=== PATIENT | female | born 1980 | race Caucasian/White ===

== ENCOUNTER 2016-09-13 08:03 | Emergency (ER) | payer OTHER ==
--- NOTE | 2016-09-13 14:45 | ED ORDER SUMMARY ---
..... Patient: ANDRAE WHITNEY OrderSheet [facility] VisitID: [id number] [address] [place] [address] 36y, F Registration Date/Time: 09/13/2016 ORDER SHEET Weight: 78.1 kg (stated) Allergies: Haldol GENERAL ORDERS: CBC w Diff Urgent (08:12 09/13/2016 Mery JACINTO) (Ack 8:14 Graham) (8:45 JDeElena R.N.) CMP Urgent (08:09/13/2016 Mery JACINTO) (Ack 8:14 Graham) (8:45 JDeElena R.N.) UA-Culture if indicated Urgent (08:09/13/2016 Mery JACINTO) (Ack 8:14 Graham) (8:45 JDeElena R.N.) Ethyl Alcohol Urgent (08:12 09/13/2016 Mery JACINTO) (Ack 8:14 Graham) (8:45 JDeElena R.N.) Urine Drug Screen Urgent (08:12 09/13/2016 Mery JACINTO) (Ack 8:14 [place]) (8:45 JDeElena R.N.) Acetaminophen Level Urgent (08:34 09/13/2016 JDeElena R.N. verbal order read back to Mery JACINTO) (Ack 8:35 [place]) (8:45 JDeElena R.N.) Salicylate Level Urgent (08:35 09/13/2016 JDeElena R.N. verbal order read back to Mery JACINTO) (Ack 8:36 [place]) (8:45 JDeElena R.N.) MEDICATION ORDERS: ZyPREXA Zydis ODT PO 5 mg (NOW) (10:24 09/13/2016 Denise Galeas) (10:43 JDeElena R.N.) Ativan PO 1 mg (HIGH ALERT MEDICATION, NOW) (10:43 09/13/2016 JDeElena R.N. verbal order read back to Denise Galeas) (10:44 JDeElena R.N.) IV FLUIDS: ORDER SHEET NOTES: [Electronically signed by Nas Macias R.N. (14:59 09/13/2016)] [Electronically signed by Rogelio Gonzalez Dr. (08:33 09/14/2016)] [Electronically locked/signed by Nas Macias R.N. (14:59 09/13/2016)]
--- NOTE | 2016-09-13 14:45 | ED ORDER SUMMARY ---
..... Patient: ANDRAE WHITNEY OrderSheet [facility] VisitID: [id number] [address] [place] [address] 36y, F Registration Date/Time: 09/13/2016 ORDER SHEET Weight: 78.1 kg (stated) Allergies: Haldol GENERAL ORDERS: CBC w Diff Urgent (08:12 09/13/2016 Mery JACINTO) (Ack 8:14 Graham) (8:45 JDeElena R.N.) CMP Urgent (08:09/13/2016 Mery JACINTO) (Ack 8:14 Graham) (8:45 JDeElena R.N.) UA-Culture if indicated Urgent (08:09/13/2016 Mery JACINTO) (Ack 8:14 Graham) (8:45 JDeElena R.N.) Ethyl Alcohol Urgent (08:12 09/13/2016 Mery JACINTO) (Ack 8:14 Graham) (8:45 JDeElena R.N.) Urine Drug Screen Urgent (08:12 09/13/2016 Mery JACINTO) (Ack 8:14 [place]) (8:45 JDeElena R.N.) Acetaminophen Level Urgent (08:34 09/13/2016 JDeElena R.N. verbal order read back to Mery JACINTO) (Ack 8:35 [place]) (8:45 JDeElena R.N.) Salicylate Level Urgent (08:35 09/13/2016 JDeElena R.N. verbal order read back to Mery JACINTO) (Ack 8:36 [place]) (8:45 JDeElena R.N.) MEDICATION ORDERS: ZyPREXA Zydis ODT PO 5 mg (NOW) (10:24 09/13/2016 Denise Galeas) (10:43 JDeElena R.N.) Ativan PO 1 mg (HIGH ALERT MEDICATION, NOW) (10:43 09/13/2016 JDeElena R.N. verbal order read back to Denise Galeas) (10:44 JDeElena R.N.) IV FLUIDS: ORDER SHEET NOTES: [Electronically signed by Nas Macias R.N. (14:59 09/13/2016)] [Electronically signed by Rogelio Gonzalez Dr. (08:33 09/14/2016)] [Electronically locked/signed by Nas Macias R.N. (14:59 09/13/2016)]
--- NOTE | 2016-09-13 14:45 | ED NURSING NOTES ---
Clinical Report - Nurses [facility] [address] [place] [address] 09/13/2016 8:06 Patient: ANDRAE WHITNEY TRIAGE Triage time 08:35. Acuity: LEVEL 2. Chief Complaint: ALTERED MENTAL STATUS and CONFUSED and (Per Police, pt was picked up off the street for throwing broken skateboard pieces at cars. Upon arrival to ED she is labile. She is alert and oriented x 4. She is cooperative but needs constant de-escalation. Per police, was recently released from [facility] and has been off her medications. Pt reports a good relationship with therapist (Mando).). Alert. SEPSIS SCREEN: Sepsis Screen: negative. Negative (no infection suspected/documented). --08:44 Nas Macias R.N. 08:35 09/13/16. BP: 149/75 (regular adult cuff) taken on the left arm, via an automated monitor, while sitting. HR: 103 (tachycardic). RR: 16 (regular, unlabored and normal). O2 saturation: 96% on room air. Temp: 98.7 F (tympanic). Pain level now: 0/10. --08:44 Nas Macias R.N. Weight: 78.1 kg stated. Height/Length: 64 inches Per Patient. BMI: 29.6. --08:37 Nas Macias R.N. Medications Unable to Obtain (Pt reports currently being on Haldol but not currently taking because "it makes [her] crazy." Wishes to take Wellbutrin instead. ). --08:37 Nas Macias R.N. Haldol Decanoate Intramuscular. --08:37 Nas Macias R.N. Medication/allergy information source: the patient. --08:44 Nas Macias R.N. Allergies Haldol. --08:38 Nas Macias R.N. History Historian: police and patient. Arrived in police custody. Primary physician (Dr. Norris at [facility], Mando at [facility]). Treatment ENTREPRENEURSHIP PROGRAM DIRECTOR: None. SOCIAL HX: Smoker- current status unknown (Unable to obtain a clear smoking hx from patient, Denies smoking tobacco but then states "I was just trying to bum a cigarette off him."). History of heavy drug use: marijuana. No alcohol use. She is homeless. She has not traveled outside the [place] The patient was not exposed to MRSA. No infectious disease exposure. SELF HARM ASSESSMENT: A self harm assessment was performed. The patient answered "no" to the question "Do you have thoughts of harming or killing yourself?", "Are you here because you tried to hurt yourself?", "Have you recently had thoughts about harming or killing others?" and "Do you have any dangerous items in your possession?". FALL RISK ASSESSMENT: Fall risk assessment completed. No fall risk identified. NUTRITIONAL RISK ASSESSMENT: The nutritional risk assessment revealed no deficiencies. FUNCTIONAL ASSESSMENT: Functional assessment: no impairments noted. LEARNING NEEDS ASSESSMENT: The learning needs assessment revealed no barriers. ABUSE ASSESSMENT: Abuse assessment: (Pt reports she does not feel safe as people are constantly trying to sam her of her marijuana.) The patient was asked "Has anyone hurt you or threatened to hurt you?". SKIN INTEGRITY ASSESSMENT: Skin integrity risk assessment completed. No skin integrity risk identified. --08:44 Nas Macias R.N. PROBLEMS: Psychosis. --08:38 Nas Macias R.N. Bipolar Disorder. PTSD. Anxiety Reaction. Depression. --09:57 Nas Macias R.N. ADDITIONAL SURGERIES: Wrist Surgery. --08:38 Nas Macias R.N. Assessment GENERAL / NEURO / PSYCH: Alert. Oriented X 4. She appears unkempt. Joselyn Coma Scale: 15- eyes open spontaneously (4); best verbal response- oriented x 4 (5); best motor response- obeys commands (6). Mood/affect abnormal (labile). Moves all extremities. No motor deficit. No sensory deficit. RESPIRATORY: No respiratory distress. Respirations not labored. SKIN: Skin is warm and dry. --08:44 Nas Macias R.N. Interventions ID band on patient. Patient ID band checked for patient name and birthdate: patient confirmed. Instructions provided to collect clean catch urine and patient verbalized understanding. Clean catch urine collected with return of yellow-colored cloudy urine; sample sent to lab for urinalysis and drug screen. Specimen labeled in the presence of the patient. Patient ID band checked for patient name and birthdate: patient confirmed. Blood samples drawn from the left antecubital space by tech per protocol ; labeled in presence of the patient and sent to lab: guicho set. To treatment room. --08:44 Nas Macias R.N. PHYSICAL ASSESSMENT 09:00. GENERAL / NEURO / PSYCH: Awake. Oriented X 4. Alert. Altered mental status: labile. Mood/affect abnormal (anxious, agitated, tearful and labile). Moves all extremities. No motor deficit. No sensory deficit. Patient appears unkempt. HEENT: Pupils equal, round and reactive to light. RESPIRATORY: No respiratory distress. Respirations not labored. Breath sounds within normal limits. CVS: Heart sounds within normal limits. Capillary refill less than 2 seconds. GI / : Abdomen soft and nontender. SKIN: Skin is warm and dry. --14:59 Nas Macias R.N. NURSING PROGRESS NOTES The initial plan of care for this patient has been created This plan of care was discussed with the patient. Patient gowned (Yellow Gown). Reassurance given to the patient. Elopement precautions initiated: one on one supervision, checks performed every 15 minutes, clothing / valuables removed and placed at the nurse's station, patient in view of the nurse's station. Two patient identifiers checked. Call light placed in reach. Side rails up x 1. Bed placed in lowest position. Brakes of bed on. --08:45 Nas Macias R.N. Warming measures: blanket applied. ( Gave pt 2 cups of coffee per her request. Gave her warm wipes to clean herself off.). --08:46 Nas Macias R.N. ( Non emergency police phone number called as per ER MD for patient making statements that pt would kill any white male that touches her. Pt refused ED MD physical evaluation.). --10:10 Annie Martini ( Pt. appears agitated. Standing in the halls shouting, "If any white male touches me I will fucking kill them. I am going to kill everyone in the hospital except the children. Everyone is going to . I am going to blow them up into pieces." Donte GARCIA notified due to pt. escalating and screaming. Refusing to go back to the room.). --10:18 Dilia Sanchez R.N. 10:43 09/13/2016 ZYPREXA ZYDIS ODT (OLANZapine) PO Oral Disintegrating Tablets 5 mg given. Allergies verified, confirmed 5 rights and sedative warning given to the patient. --10:43 Nas Macias R.N. 10:44 09/13/2016 Ativan (LORazepam) PO Tablets 1 mg given. Allergies verified, confirmed 5 rights and sedative warning given to the patient. --10:44 Nas Macias R.N. ( Pt was agitated and unable to be de-escalated by staff. Donte GARCIA called out. With the help of Donte GARCIA, pt de-escalated. She initially refused ordered medications. She did finally cooperate and take the 2 medications.). --11:00 Nas Macias R.N. ( Code [place] called. Team responded. Pt has been placed in a 4-point restraints at this time. She began violently kicking door to Room 16. She would not stop. To prevent pt from acute injury to R leg and inability to calm down, she has been placed in restraints at this time.). --11:50 Nas Macias R.N. late entry - 10:36. ( Prior to being in a 4-point restraint, locking door restraint was initiated because pt was exiting room into hallway and screaming threats to staff. See restraint charting at 1136. These restraints were d/c at 1150 when a 4-point locking restraint had to be initiated because pt was a kicking room 16 door and would not stop.). --12:14 Nas Macias R.N. ( [facility] arrived and at bedside evaluating pt.). --13:12 Nas Macias R.N. 13:20. ( Per [facility] request, we have released Andrae out of 2 of the 4-point restraints. Lunch given to pt. Will release other 2-points after observation.). --13:38 Nas Macias R.N. ( Pt is out of restraints at this time. Cooperative and calm. [facility] at bedside.). --13:41 Nas Macias R.N. 14:05. ( Per [facility], Andrae will not be involuntarily detained at this time. Safety plan has been made and she will f/u with scheduled appointment in 3 days. EDP notified/updated. Will prepare to d/c Andrae.). --14:58 Nas Macias R.N. DISPOSITION / DISCHARGE Departure time: 14:57. Condition at departure: stable. The goals identified in the patient's plan of care were met. No learning barriers present. Discharge instructions provided and reviewed with the patient. Reviewed medication(s) side effects, precautions, dosing and course information. Prescription(s) given to the patient. Patient verbalized understanding. Written instructions provided in Indonesian. ( Andrae verbalizes understands all d/c instructions including need to stay on Zyprexa until sees therapist. She has no questions and voices no concerns at this time.). The patient was discharged by the physician. She was discharged home and unaccompanied at time of discharge. She left the Emergency Department ambulatory. JOSELYN COMA SCORE: [place] Coma Scale: 15- eyes open spontaneously (4); best verbal response- oriented x 4 (5); best motor response- obeys commands (6). --14:57 Nas Macias R.N. 14:54 09/13/16. BP: 120/76 (regular adult cuff) taken on the left arm, via an automated monitor, while lying. HR: 94 (normal rate). RR: 14 (regular, unlabored and normal). O2 saturation: 99% on room air. Temp: 98.8 F (tympanic). Pain level now: 0/10. --14:57 Nas Macias R.N. Locked/Released at 09/13/2016 14:59 by Nas Macias R.N.
--- NOTE | 2016-09-13 14:45 | ED CLINICAL REPORT ---
Clinical Report - Physicians/Mid Levels [facility] [address] [place] [address] 09/13/2016 8:06 Patient: ANDRAE WHITNEY Time Seen: 08:11. Arrived- By ambulance. Historian- EMS personnel. History limited by poor cooperation. Physical Exam limited by poor cooperation. HISTORY OF PRESENT ILLNESS Chief Complaint: Pt said to be recently released from custodial. [place] [employer] police stat that Ms Whitney threw a skate board at someone. They further state that she does not have warrants or conditions from her prior incarceration which would result in re incarceration. This started today and is still present. The patient has been disoriented. No alcohol recently. History of recent drug use: marijuana. Recently used drugs just prior to arrival. Under influence in ED. No weakness or recent fall. No difficulty walking. Usually is alert and oriented X3 and usually has normal mobility. Similar symptoms previously: Many times. Recent medical care: Not recently seen/assessed. REVIEW OF SYSTEMS No headache, chest pain, difficulty breathing or suicidal thoughts. All systems otherwise negative, except as recorded above. PAST HISTORY ( Psychosis. Bipolar Disorder. PTSD. Anxiety Reaction. Depression. SURGERIES: Wrist Surgery.). Medications: Haldol Decanoate Intramuscular. Unable to Obtain (Pt reports currently being on Haldol but not currently taking because "it makes [her] crazy." Wishes to take Wellbutrin instead. ). Allergies: Haldol. SOCIAL HISTORY Smoker - current status unknown. History of drug use: marijuana. No alcohol use. ADDITIONAL NOTES The nursing notes have been reviewed. PHYSICAL EXAM Vital Signs: 09/13/2016 08:35 BP: 149/75. HR: 103. RR: 16. O2 saturation: 96%. Temp: 98.7 F. Pain level now: 0/10. Have been reviewed. Hypertensive. Tachycardic. Respiratory rate normal. Temperature normal. Oxygen saturation normal. Appearance: Alert. No acute distress. Head: Head atraumatic. ENT: Moist mucous membranes. CVS: Normal heart rate and rhythm. Heart sounds normal. Respiratory: No respiratory distress. Breath sounds normal. Abdomen: Soft and nontender. No organomegaly. The bowel sounds are not abnormal. Skin: Skin warm and dry. Normal skin color. Neuro: Alert. Oriented X 3. Moderately altered mental status: combative. LABS, X-RAYS, AND EKG Laboratory Tests: UA-Culture if indicated: (KHANG: 09/13/2016 08:25) ( [facility] 09/13/2016 09:11) Final results Test Result Flag Units (Reference) URINE COLOR YELLOW This is a corrected result 09/13/16 0911:URINE COLOR previously reported as: YELLOW URINE APPEARANCE CLEAR URINE GLUCOSE NEGATIVE (NEGATIVE) URINE BILIRUBIN NEGATIVE (NEGATIVE) URINE KETONE NEGATIVE (NEGATIVE) URINE SPECIFIC GRAVITY 1.010 (1.010-1.030) URINE PH 5.5 (5.0-8.0) URINE PROTEIN NEGATIVE (NEGATIVE) URINE UROBILINOGEN 0.2 EU/dL (0.2-1.0) URINE NITRITE NEGATIVE (NEGATIVE) URINE BLOOD NEGATIVE (NEGATIVE) URINE LEUK ESTERASE NEGATIVE (NEGATIVE) URINE RBC NONE SEEN rbc/hpf (0-1) URINE WBC NONE SEEN wbc/hpf (0-1) URINE EPITHELIAL CELLS 1-3 EPI/hpf (0-5) URINE BACTERIA NONE SEEN (NONE SEEN) URINE COMMENT CULT NOT INDICATED URINE CULTURES ARE SET-UP BASED ON THE FOLLOWING CRITERIA:POSITIVE NITRITEPOSITIVE LEUKOCYTE ESTERASEGREATER THAN 10 WHITE BLOOD CELLSMODERATE (2+) OR GREATER BACTERIA CBC w Diff: (KHANG: 09/13/2016 08:08) ( [facility] 09/13/2016 08:22) Final results Test Result Flag Units (Reference) WHITE BLOOD COUNT 8.7 K/uL (4.5-11.5) RED BLOOD COUNT 4.49 M/uL (4.00-5.20) HEMOGLOBIN 11.0 L gm/dL (12.0-16.0) HEMATOCRIT 34.2 L % (36.0-46.0) MEAN CELL VOLUME 76 L fL (80-100) MEAN CORPUSCULAR HGB 24 L pg (26-34) MEAN CORPUSCULAR HGB CONC 32 g/dL (31-37) RED CELL DISTRIBUTION WIDTH 16.9 H % (11.6-14.8) PLATELET COUNT 424 H K/uL (150-400) NEUTROPHIL % 73.3 % (50-75) LYMPH % 18.5 L % (25-40) MONO % 8.2 % (3-14) EOSINOPHIL % 0 % (0-4) BASOPHIL % 0 % (0-2) Salicylate Level: (KHANG: 09/13/2016 08:08) ( [facility] 09/13/2016 09:02) Final results Test Result Flag Units (Reference) SALICYLATE <2.8 L mg/dL (2.8-20) Acetaminophen Level: (KHANG: 09/13/2016 08:08) ( [facility] 09/13/2016 09:05) Final results Test Result Flag Units (Reference) ACETAMINOPHEN < 10 L ug/mL (10-30) Urine Drug Screen: (KHANG: 09/13/2016 08:25) ( [facility] 09/13/2016 09:06) Final results Test Result Flag Units (Reference) AMPHETAMINE/METHAMPHETAMINE NEGATIVE (NEGATIVE) BARBITURATE NEGATIVE (NEGATIVE) BENZODIAZEPINE NEGATIVE (NEGATIVE) CANNABINOID POSITIVE H (NEGATIVE) COCAINE NEGATIVE (NEGATIVE) ECSTASY NEGATIVE (NEGATIVE) METHADONE NEGATIVE (NEGATIVE) OPIATE NEGATIVE (NEGATIVE) The urine drug screen is a qualitative screening test fordrug overdose and abuse. All screen results should beconsidered as presumptive.Drugs screened for are as follows:BenzodiazepinesCocaineAmphetamines/MetamphetaminesTHC (Tetrahydrocannabinol)OpiatesBarbituratesEcstasyMethadonePositive results are unconfirmed. For confirmation, notifythe lab for the specimen to be sent to the reference lab.All confirmations must be performed by a differentmethodology.The ingestion of natural herbal and plant productscontaining Ephedra/Ephedra metabolites can produce in urineone or more substances capable of cross reacting withamphetamine/methamphetamine immunoassays. These testsprovide a preliminary result only. A more specificalternative chemical method must be used to obtain aconfirmed analytical result. CMP: (KHANG: 09/13/2016 08:08) ( MsgRcvd 09/13/2016 08:40) Final results Test Result Flag Units (Reference) GLUCOSE 117 H mg/dL (70-110) BUN 12 mg/dL (7-18) CREATININE 0.8 mg/dL (0.6-1.3) Estimated GFR >60 mL/min Estimated GFR- >60 mL/min Note: Persistent reduction over 3 months in eGFR<60 mL/min/1.73 m2 defines CKD. Patients with eGFR values>=60 mL/min/1.73 m2 may also have CKD if evidence ofpersistent proteinuria. Additional information may be foundat www.kidney.org. SODIUM 140 mmol/L (136-145) POTASSIUM 4.3 mmol/L (3.5-5.1) CHLORIDE 105 mmol/L (98-107) CARBON DIOXIDE 25 mmol/L (21-32) CALCIUM 8.9 mg/dL (8.5-10.1) TOTAL PROTEIN 7.5 g/dL (6.4-8.2) ALBUMIN 3.4 g/dL (3.3-5.0) BILIRUBIN, TOTAL 0.3 mg/dL (0.0-1.0) ALKALINE PHOSPHATASE 85 U/L (46-116) AST (SGOT) 20 U/L (15-37) ALT (SGPT) 25 U/L (12-78) ETHYL ALCOHOL <3 L mg/dL (3-10) . PROGRESS AND PROCEDURES Course of Care: Cleared by DM for D/C., appt in 3 days. Disposition: Discharged home in good and improved condition. Condition: good. CLINICAL IMPRESSION Chronic bipolar disorder. INSTRUCTIONS Your Current Medications: CONTINUE TAKING THE FOLLOWING MEDICATIONS: Haldol Decanoate Intramuscular. Unable to Obtain* : Pt reports currently being on Haldol but not currently taking because "it makes [her] crazy." Wishes to take Wellbutrin instead. Prescription Medications: Zyprexa 10 mg (orally disintegrating): take 1 orally. Dispense five (5). No refills. Substitution is permissible. Follow-up: Follow up with your doctor in three days even if well. Call for an appointment. (Electronically signed by Rogelio Gonzalez Dr. 09/14/2016 8:33)
--- NOTE | 2016-09-13 14:45 | ED CLINICAL REPORT ---
Clinical Report - Physicians/Mid Levels [facility] [address] [place] [address] 09/13/2016 8:06 Patient: ANDRAE WHITNEY Time Seen: 08:11. Arrived- By ambulance. Historian- EMS personnel. History limited by poor cooperation. Physical Exam limited by poor cooperation. HISTORY OF PRESENT ILLNESS Chief Complaint: Pt said to be recently released from correction. Just [employer] police stat that Ms Whitney threw a skate board at someone. They further state that she does not have warrants or conditions from her prior incarceration which would result in re incarceration. This started today and is still present. The patient has been disoriented. No alcohol recently. History of recent drug use: marijuana. Recently used drugs just prior to arrival. Under influence in ED. No weakness or recent fall. No difficulty walking. Usually is alert and oriented X3 and usually has normal mobility. Similar symptoms previously: Many times. Recent medical care: Not recently seen/assessed. REVIEW OF SYSTEMS No headache, chest pain, difficulty breathing or suicidal thoughts. All systems otherwise negative, except as recorded above. PAST HISTORY ( Psychosis. Bipolar Disorder. PTSD. Anxiety Reaction. Depression. SURGERIES: Wrist Surgery.). Medications: Haldol Decanoate Intramuscular. Unable to Obtain (Pt reports currently being on Haldol but not currently taking because "it makes [her] crazy." Wishes to take Wellbutrin instead. ). Allergies: Haldol. SOCIAL HISTORY Smoker - current status unknown. History of drug use: marijuana. No alcohol use. ADDITIONAL NOTES The nursing notes have been reviewed. PHYSICAL EXAM Vital Signs: 09/13/2016 08:35 BP: 149/75. HR: 103. RR: 16. O2 saturation: 96%. Temp: 98.7 F. Pain level now: 0/10. Have been reviewed. Hypertensive. Tachycardic. Respiratory rate normal. Temperature normal. Oxygen saturation normal. Appearance: Alert. No acute distress. Head: Head atraumatic. ENT: Moist mucous membranes. CVS: Normal heart rate and rhythm. Heart sounds normal. Respiratory: No respiratory distress. Breath sounds normal. Abdomen: Soft and nontender. No organomegaly. The bowel sounds are not abnormal. Skin: Skin warm and dry. Normal skin color. Neuro: Alert. Oriented X 3. Moderately altered mental status: combative. LABS, X-RAYS, AND EKG Laboratory Tests: UA-Culture if indicated: (KHANG: 09/13/2016 08:25) ( [facility] 09/13/2016 09:11) Final results Test Result Flag Units (Reference) URINE COLOR YELLOW This is a corrected result 09/13/16 0911:URINE COLOR previously reported as: YELLOW URINE APPEARANCE CLEAR URINE GLUCOSE NEGATIVE (NEGATIVE) URINE BILIRUBIN NEGATIVE (NEGATIVE) URINE KETONE NEGATIVE (NEGATIVE) URINE SPECIFIC GRAVITY 1.010 (1.010-1.030) URINE PH 5.5 (5.0-8.0) URINE PROTEIN NEGATIVE (NEGATIVE) URINE UROBILINOGEN 0.2 EU/dL (0.2-1.0) URINE NITRITE NEGATIVE (NEGATIVE) URINE BLOOD NEGATIVE (NEGATIVE) URINE LEUK ESTERASE NEGATIVE (NEGATIVE) URINE RBC NONE SEEN rbc/hpf (0-1) URINE WBC NONE SEEN wbc/hpf (0-1) URINE EPITHELIAL CELLS 1-3 EPI/hpf (0-5) URINE BACTERIA NONE SEEN (NONE SEEN) URINE COMMENT CULT NOT INDICATED URINE CULTURES ARE SET-UP BASED ON THE FOLLOWING CRITERIA:POSITIVE NITRITEPOSITIVE LEUKOCYTE ESTERASEGREATER THAN 10 WHITE BLOOD CELLSMODERATE (2+) OR GREATER BACTERIA CBC w Diff: (KHANG: 09/13/2016 08:08) ( [facility] 09/13/2016 08:22) Final results Test Result Flag Units (Reference) WHITE BLOOD COUNT 8.7 K/uL (4.5-11.5) RED BLOOD COUNT 4.49 M/uL (4.00-5.20) HEMOGLOBIN 11.0 L gm/dL (12.0-16.0) HEMATOCRIT 34.2 L % (36.0-46.0) MEAN CELL VOLUME 76 L fL (80-100) MEAN CORPUSCULAR HGB 24 L pg (26-34) MEAN CORPUSCULAR HGB CONC 32 g/dL (31-37) RED CELL DISTRIBUTION WIDTH 16.9 H % (11.6-14.8) PLATELET COUNT 424 H K/uL (150-400) NEUTROPHIL % 73.3 % (50-75) LYMPH % 18.5 L % (25-40) MONO % 8.2 % (3-14) EOSINOPHIL % 0 % (0-4) BASOPHIL % 0 % (0-2) Salicylate Level: (KHANG: 09/13/2016 08:08) ( [facility] 09/13/2016 09:02) Final results Test Result Flag Units (Reference) SALICYLATE <2.8 L mg/dL (2.8-20) Acetaminophen Level: (KHANG: 09/13/2016 08:08) ( [facility] 09/13/2016 09:05) Final results Test Result Flag Units (Reference) ACETAMINOPHEN < 10 L ug/mL (10-30) Urine Drug Screen: (KHANG: 09/13/2016 08:25) ( [facility] 09/13/2016 09:06) Final results Test Result Flag Units (Reference) AMPHETAMINE/METHAMPHETAMINE NEGATIVE (NEGATIVE) BARBITURATE NEGATIVE (NEGATIVE) BENZODIAZEPINE NEGATIVE (NEGATIVE) CANNABINOID POSITIVE H (NEGATIVE) COCAINE NEGATIVE (NEGATIVE) ECSTASY NEGATIVE (NEGATIVE) METHADONE NEGATIVE (NEGATIVE) OPIATE NEGATIVE (NEGATIVE) The urine drug screen is a qualitative screening test fordrug overdose and abuse. All screen results should beconsidered as presumptive.Drugs screened for are as follows:BenzodiazepinesCocaineAmphetamines/MetamphetaminesTHC (Tetrahydrocannabinol)OpiatesBarbituratesEcstasyMethadonePositive results are unconfirmed. For confirmation, notifythe lab for the specimen to be sent to the reference lab.All confirmations must be performed by a differentmethodology.The ingestion of natural herbal and plant productscontaining Ephedra/Ephedra metabolites can produce in urineone or more substances capable of cross reacting withamphetamine/methamphetamine immunoassays. These testsprovide a preliminary result only. A more specificalternative chemical method must be used to obtain aconfirmed analytical result. CMP: (KHANG: 09/13/2016 08:08) ( MsgRcvd 09/13/2016 08:40) Final results Test Result Flag Units (Reference) GLUCOSE 117 H mg/dL (70-110) BUN 12 mg/dL (7-18) CREATININE 0.8 mg/dL (0.6-1.3) Estimated GFR >60 mL/min Estimated GFR- >60 mL/min Note: Persistent reduction over 3 months in eGFR<60 mL/min/1.73 m2 defines CKD. Patients with eGFR values>=60 mL/min/1.73 m2 may also have CKD if evidence ofpersistent proteinuria. Additional information may be foundat www.kidney.org. SODIUM 140 mmol/L (136-145) POTASSIUM 4.3 mmol/L (3.5-5.1) CHLORIDE 105 mmol/L (98-107) CARBON DIOXIDE 25 mmol/L (21-32) CALCIUM 8.9 mg/dL (8.5-10.1) TOTAL PROTEIN 7.5 g/dL (6.4-8.2) ALBUMIN 3.4 g/dL (3.3-5.0) BILIRUBIN, TOTAL 0.3 mg/dL (0.0-1.0) ALKALINE PHOSPHATASE 85 U/L (46-116) AST (SGOT) 20 U/L (15-37) ALT (SGPT) 25 U/L (12-78) ETHYL ALCOHOL <3 L mg/dL (3-10) . PROGRESS AND PROCEDURES Course of Care: Cleared by DM for D/C., appt in 3 days. Disposition: Discharged home in good and improved condition. Condition: good. CLINICAL IMPRESSION Chronic bipolar disorder. INSTRUCTIONS Your Current Medications: CONTINUE TAKING THE FOLLOWING MEDICATIONS: Haldol Decanoate Intramuscular. Unable to Obtain* : Pt reports currently being on Haldol but not currently taking because "it makes [her] crazy." Wishes to take Wellbutrin instead. Prescription Medications: Zyprexa 10 mg (orally disintegrating): take 1 orally. Dispense five (5). No refills. Substitution is permissible. Follow-up: Follow up with your doctor in three days even if well. Call for an appointment. (Electronically signed by Rogelio Gonzalez Dr. 09/14/2016 8:33)
--- NOTE | 2016-09-14 08:34 | ED DISCHARGE INSTRUCTIONS ---
Patient: ANDRAE WHITNEY General Instructions [facility] VisitID: [id number] [address] [place] [address] 36y, F Registration Date/Time: 09/13/2016 Chronic bipolar disorder. INSTRUCTIONS Your Current Medications: CONTINUE TAKING THE FOLLOWING MEDICATIONS: Haldol Decanoate Intramuscular. Unable to Obtain* : Pt reports currently being on Haldol but not currently taking because "it makes [her] crazy." Wishes to take Wellbutrin instead. Prescription Medications: Zyprexa 10 mg (orally disintegrating): take 1 orally. Dispense five (5). No refills. Substitution is permissible. Follow-up: Follow up with your doctor in three days even if well. Call for an appointment. ADDITIONAL INFORMATION Bipolar Disorder Bipolar disorder (formerly called manic depression) is an illness that causes strong mood swings between depression and carroll. This can interfere with work and relationships. In a manic episode, you may think fast and do things quickly. It may seem like you are getting a lot done. At first, this may feel very good; but in the extreme this can lead to a lifestyle that is disorganized, chaotic, and includes risky behavior (spending sprees, sexual acting-out, or drug use). In later stages, it may affect eating (no interest in food) and sleeping (unable to sleep for days at a time). Speech may speed up and become difficult for others to understand. You may appear to others as if you are in your own world. In a depressive episode, you may feel a lack of interest in normal activities. Sometimes there is sadness or guilt without any clear reason. Thinking may become slow and there can be a lack energy or feeling of hopelessness. Some people have thoughts of harming themselves at this stage. Thoughts can even turn to suicide. Between these two phases you may actually feel okay. This does not mean that the illness is gone. People with this disorder will usually have to treat it all of their life. Medication and good care can greatly reduce the symptoms. The exact cause of this illness is unknown. However, there is a genetic link that makes a person more likely to get this problem. Also, the use of drugs such as speed (amphetamine) and cocaine increase the chances of this illness appearing. Home Care: Be sure to take your medicine even if you think you dont need it. Talk with your family about your thoughts and feelings. Follow Up with your doctor or therapist as directed by our staff. They can help you to find ways to improve your life. For more information: The National Comfort on Mental Illness www.wanda.org 436-704-1032. Get Prompt Medical Attention if any of the following occur: Feeling like your symptoms are getting worse (depression, agitation, excess energy) Unable to eat or sleep for more than 48 hours Feeling out of control (racing thoughts, poor concentration) Feeling like you want to harm yourself or another Being unable to care for yourself You have been given the following additional information: Bipolar Disorder (Electronically signed by Rogelio Gonzalez Dr. 09/14/2016 8:33)
--- NOTE | 2016-09-14 08:34 | ED MED RECONCILIATION SUMMARY ---
Patient: ANDRAE WHITNEY Medication Reconciliation Report [facility] VisitID: [id number] [address] [place] [address] 36y, F Registration Date/Time: 09/13/2016 Weight: 78.1 kg Height/Length: 64 in. BMI: 29.6 ALLERGIES: Haldol The patient's Home Medications are listed below: CONTINUE TAKING THE FOLLOWING MEDICATIONS: Haldol Decanoate Intramuscular The source(s) of the original Home Medication information: patient The following Medications were given to the patient in the Emergency Department: ZYPREXA ZYDIS ODT [PO] PO 5 mg, administered: 09/13/2016 10:43:00 AM Ativan [PO] PO 1 mg, administered: 09/13/2016 10:44:00 AM The following Medications were prescribed to the patient: Zyprexa 10 mg (orally disintegrating): take 1 orally. Dispense five (5). No refills. Substitution is permissible. -- Rogelio Gonzalez Dr.
--- NOTE | 2016-09-14 08:34 | ED MED RECONCILIATION SUMMARY ---
Patient: ANDRAE WHITNEY Medication Reconciliation Report [facility] VisitID: [id number] [address] [place] [address] 36y, F Registration Date/Time: 09/13/2016 Weight: 78.1 kg Height/Length: 64 in. BMI: 29.6 ALLERGIES: Haldol The patient's Home Medications are listed below: CONTINUE TAKING THE FOLLOWING MEDICATIONS: Haldol Decanoate Intramuscular The source(s) of the original Home Medication information: patient The following Medications were given to the patient in the Emergency Department: ZYPREXA ZYDIS ODT [PO] PO 5 mg, administered: 09/13/2016 10:43:00 AM Ativan [PO] PO 1 mg, administered: 09/13/2016 10:44:00 AM The following Medications were prescribed to the patient: Zyprexa 10 mg (orally disintegrating): take 1 orally. Dispense five (5). No refills. Substitution is permissible. -- Rogelio Gonzalez Dr.
--- NOTE | 2016-09-14 08:34 | ED MAR SUMMARY ---
..... Medication Administration Record [facility] [address] [place] [address] Patient: ANDRAE WHITNEY Visit ID: [id number] 36y, F Weight: 78.1 kg Height/Length: 64 in BMI: 29.6 ALLERGIES: Haldol Given 10:43 09/13/2016 Nas Macias, RNaidaNNaida Medication Administered: ZYPREXA ZYDIS ODT [PO] (OLANZAPINE), Dose: 5 mg Oral Disintegrating Tablets PO. Medication Ordered: ZyPREXA Zydis ODT PO 5 mg (NOW). Given 10:44 09/13/2016 Nas Macias, R.N. Medication Administered: ATIVAN [PO] (LORAZEPAM), Dose: 1 mg Tablets PO. Medication Ordered: Ativan PO 1 mg (HIGH ALERT MEDICATION, NOW).
--- NOTE | 2016-09-14 08:34 | ED MAR SUMMARY ---
..... Medication Administration Record [facility] [address] [place] [address] Patient: ANDRAE WHITNEY Visit ID: [id number] 36y, F Weight: 78.1 kg Height/Length: 64 in BMI: 29.6 ALLERGIES: Haldol Given 10:43 09/13/2016 Nas Macias, RNaidaNNaida Medication Administered: ZYPREXA ZYDIS ODT [PO] (OLANZAPINE), Dose: 5 mg Oral Disintegrating Tablets PO. Medication Ordered: ZyPREXA Zydis ODT PO 5 mg (NOW). Given 10:44 09/13/2016 Nas Macias, R.N. Medication Administered: ATIVAN [PO] (LORAZEPAM), Dose: 1 mg Tablets PO. Medication Ordered: Ativan PO 1 mg (HIGH ALERT MEDICATION, NOW).
--- NOTE | 2016-09-14 08:34 | ED DISCHARGE INSTRUCTIONS ---
Patient: ANDRAE WHITNEY General Instructions [facility] VisitID: [id number] [address] [place] [address] 36y, F Registration Date/Time: 09/13/2016 Chronic bipolar disorder. INSTRUCTIONS Your Current Medications: CONTINUE TAKING THE FOLLOWING MEDICATIONS: Haldol Decanoate Intramuscular. Unable to Obtain* : Pt reports currently being on Haldol but not currently taking because "it makes [her] crazy." Wishes to take Wellbutrin instead. Prescription Medications: Zyprexa 10 mg (orally disintegrating): take 1 orally. Dispense five (5). No refills. Substitution is permissible. Follow-up: Follow up with your doctor in three days even if well. Call for an appointment. ADDITIONAL INFORMATION Bipolar Disorder Bipolar disorder (formerly called manic depression) is an illness that causes strong mood swings between depression and carroll. This can interfere with work and relationships. In a manic episode, you may think fast and do things quickly. It may seem like you are getting a lot done. At first, this may feel very good; but in the extreme this can lead to a lifestyle that is disorganized, chaotic, and includes risky behavior (spending sprees, sexual acting-out, or drug use). In later stages, it may affect eating (no interest in food) and sleeping (unable to sleep for days at a time). Speech may speed up and become difficult for others to understand. You may appear to others as if you are in your own world. In a depressive episode, you may feel a lack of interest in normal activities. Sometimes there is sadness or guilt without any clear reason. Thinking may become slow and there can be a lack energy or feeling of hopelessness. Some people have thoughts of harming themselves at this stage. Thoughts can even turn to suicide. Between these two phases you may actually feel okay. This does not mean that the illness is gone. People with this disorder will usually have to treat it all of their life. Medication and good care can greatly reduce the symptoms. The exact cause of this illness is unknown. However, there is a genetic link that makes a person more likely to get this problem. Also, the use of drugs such as speed (amphetamine) and cocaine increase the chances of this illness appearing. Home Care: Be sure to take your medicine even if you think you dont need it. Talk with your family about your thoughts and feelings. Follow Up with your doctor or therapist as directed by our staff. They can help you to find ways to improve your life. For more information: The National D[employer] on Mental Illness www.wanda.org 783-116-1746. Get Prompt Medical Attention if any of the following occur: Feeling like your symptoms are getting worse (depression, agitation, excess energy) Unable to eat or sleep for more than 48 hours Feeling out of control (racing thoughts, poor concentration) Feeling like you want to harm yourself or another Being unable to care for yourself You have been given the following additional information: Bipolar Disorder (Electronically signed by Rogelio Gonzalez Dr. 09/14/2016 8:33)
== END 2016-09-13 14:58 | disposition home or self-care (01) ==
LOC: ED SRH 08:03
DX: F31.89 Other bipolar disorder (principal); Z78.1 Physical restraint status; Z88.5 Allergy status to narcotic agent
CPT/HCPCS: 90004; 90100; 92010; 92760; 92761; 92762; 92763; 92764; 92765; 92766; 92767; 92780; 95059; 97000